=== PATIENT | female | born 1940 | race Caucasian/White ===

== ENCOUNTER 2020-11-08 15:20 | Emergency (ER) | payer OTHER ==
[~2020-11-08] VITALS: Ht 157.5 cm; Wt 62.1 kg
[2020-11-08 15:55] LABS: ABSOLUTE NEUTROPHILS 4.2 thou/uL (1.4-8.2); BASOPHILS 0.6 % (0.0-2.0); HEMATOCRIT 37.3 % (37.0-47.0); HEMOGLOBIN 12.8 gm/dL (12.0-15.0); LYMPHOCYTES 14.8 % (24.0-44.0); MCH 29.1 pg (26.0-34.0); MCHC 34.3 g/dL (28.0-37.0); MCV 84.7 fL (80.0-100.0); MONOCYTES 8.5 % (1.0-8.0); PLATELET COUNT 218 thou/uL (150-400); POLYS 75.1 % (36.0-66.0); RDW 13.5 % (10.5-14.5); WBC 5.6 thou/uL (4.0-11.0)
[2020-11-08 16:03] LABS: ANION GAP 5 mmol/L (7-16); BUN 17 mg/dL (7-18); CALCIUM 8.4 mg/dL (8.5-10.1); CHLORIDE 102 mmol/L (98-107); CO2 28 mmol/L (21-32); GLUCOSE 99 mg/dL (74-106); SODIUM 135 mmol/L (136-145)
[2020-11-08 16:12] LABS: TROPONIN-I <0.06 ng/mL (<0.06)
[2020-11-08 16:59] LABS: URINE BILIRUBIN NEGATIVE (Negative); URINE BLOOD NEGATIVE (Negative); URINE CLARITY CLEAR; URINE COLOR YELLOW; URINE GLUCOSE-RANDOM* NEGATIVE (Negative); URINE KETONES NEGATIVE (Negative); URINE PROTEIN (DIPSTICK) NEGATIVE (Negative); URINE UROBILINOGEN 0.2 E.U./dl (0.2-1.0)
[2020-11-08 17:05] LABS: URINE LEUKOCYTES-REFLEX 2+ (Negative); URINE NITRITE-REFLEX POSITIVE (Negative)
[2020-11-08 17:07] VITALS: BP 181/75
[2020-11-08 17:14] LABS: SQUAMOUS >10 Many /LPF (0-3)
[2020-11-08 17:15] LABS: BACTERIA-REFLEX >30 Many /HPF (None Seen); CASTS None Seen /LPF (None Seen); CRYSTALS None Seen /LPF (None Seen); URINE RBC 0-2 Rare /HPF (0-2); URINE WBC-REFLEX 6-15 Few /HPF (0-5)
--- NOTE | 2020-11-09 07:25 | EKG ---
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: nmd : 1940 Requested By: Dimitris Camilo Order Number: [id number] MD: Quirino Hernandez Measurements Intervals [place] Rate: 48 P: 26 NV: 201 QRS: -23 QRSD: 100 T: 2 QT: 458 QTc: 410 Interpretive Statements Sinus bradycardia Borderline left axis deviation Borderline T abnormalities, anterior leads No previous ECG available for comparison Electronically Signed On 11-09-2020 7:24:50 CDT by Quirino Hernandez [email or web address] <ELECTRONICALLY SIGNED> By: Quirino Hernandez MD, [facility] 11/09/20 0724 1545 1545 Quirino Hernandez MD, FACC /EPI
== END 2020-11-08 17:16 | disposition home or self-care (01) ==
LOC: ER 15:20
PROVIDERS: Emergency Medicine
DX: R55 Syncope and collapse (principal); Z88.0 Allergy status to penicillin; Z91.013 Allergy to seafood